=== PATIENT | female | born 1975 | race Two or more races ===

== ENCOUNTER 2021-04-16 20:16 | Emergency (ER) | payer OTHER ==
[~2021-04-16] VITALS: Ht 149.9 cm; Wt 99.8 kg
[2021-04-16] MEDS ORDERED: EPINEPHrine HCL 1 MG/1 ML AMP SC ONE (20:30)
[2021-04-16] MEDS ORDERED: methylPREDNISolone SOD SUCC 125 MG/2 ML VL IV ONE (20:30)
[2021-04-16 23:00] VITALS: BP 106/59
== END 2021-04-16 23:20 | disposition home or self-care (01) ==
LOC: ER 20:19
DX: T78.2XXA Anaphylactic shock, unspecified, initial encounter (principal); J45.909 Unspecified asthma, uncomplicated; I10 Essential (primary) hypertension; Z91.013 Allergy to seafood
CPT/HCPCS: 96372; 96374; 99284; J0171; J2930